=== PATIENT | female | born 1985 | race Caucasian/White ===

== ENCOUNTER 2022-04-09 14:49 | Observation (INO) | payer MEDICAID ==
[2022-04-10] MEDS ORDERED: CEPH500C2 MT ×2 (09:14→11:46)
[2022-04-10] MEDS ORDERED: MUPI1OIN4 TP ×2 (09:14→11:46)
== END 2022-04-09 16:10 | disposition home or self-care (01) ==
LOC: 8 EST LDRP 14:49
PROVIDERS: ADMIT Obstetrics & Gynecology; ATTEND Obstetrics & Gynecology
DX: O99.891 Other specified diseases and conditions complicating pregnancy (principal); M25.572 Pain in left ankle and joints of left foot; Z3A.35 35 weeks gestation of pregnancy
CPT/HCPCS: 59025; G0378

== ENCOUNTER 2022-04-09 16:35 | Emergency (ER) | payer MEDICAID ==
[~2022-04-09] VITALS: Ht 165.1 cm; Wt 72.5 kg
[2022-04-09 16:48] VITALS: BP 122/85
[2022-04-09] MEDS ORDERED: CEPHALEXIN 250MG CAPSULE PO ONE (20:45)
[2022-04-10] MEDS ORDERED: CEPH500C2 MT ×2 (09:14→11:46)
[2022-04-10] MEDS ORDERED: MUPI1OIN4 TP ×2 (09:14→11:46)
== END 2022-04-09 20:29 | disposition left against medical advice (07) ==
LOC: ER 16:35
DX: O99.892 Other specified diseases and conditions complicating childbirth (principal); L03.211 Cellulitis of face; L03.114 Cellulitis of left upper limb; L03.113 Cellulitis of right upper limb; R03.0 Elevated blood-pressure reading, without diagnosis of hypertension; Z3A.25 25 weeks gestation of pregnancy; Z59.00 Homelessness unspecified; O09.522 Supervision of elderly multigravida, second trimester
CPT/HCPCS: 99281

== ENCOUNTER 2022-04-10 07:32 | Emergency (ER) | payer MEDICAID ==
[~2022-04-10] VITALS: Ht 165.1 cm; Wt 74.0 kg
[2022-04-10] MEDS ORDERED: CEPH500C2 MT ×2 (09:14→11:46)
[2022-04-10] MEDS ORDERED: MUPI1OIN4 TP ×2 (09:14→11:46)
[2022-04-10 09:43] VITALS: BP 115/79
== END 2022-04-10 10:10 | disposition home or self-care (01) ==
LOC: ER 07:32
DX: O26.92 Pregnancy related conditions, unspecified, second trimester (principal); L03.113 Cellulitis of right upper limb; F15.10 Other stimulant abuse, uncomplicated; R23.4 Changes in skin texture; Z59.00 Homelessness unspecified; Z3A.25 25 weeks gestation of pregnancy
CPT/HCPCS: 99281; 99283